=== PATIENT | female | born 1945 | race Caucasian/White ===

== ENCOUNTER → 2018-01-24 | Day surgery (SDC) | payer OTHER ==
[2018-01-21 09:53] LABS: BASOPHILS % 0.5 % (0.0-1.0); EOSINOPHILS # (AUTO) 0.1 (0.0-0.4); EOSINOPHILS % 2.6 % (0.0-6.0); HEMATOCRIT 46.5 % (34.2-44.1); HEMOGLOBIN 15.2 g/dL (12.0-16.0); LYMPHOCYTES # (AUTO) 1.6 (1.0-3.2); LYMPHOCYTES % 28.6 % (18.0-39.1); MEAN CORPUSCULAR HEMOGLOBIN 30.1 pg (28-32); MEAN CORPUSCULAR HGB CONC 32.7 g/dL (31-35); MEAN CORPUSCULAR VOLUME 92.1 fL (81-99); MONOCYTES # (AUTO) 0.5 (0.2-0.8); MONOCYTES % 8.9 % (4.4-11.3); NEUTROPHILS # (AUTO) 3.2 (2.1-6.9); PLATELET COUNT 160 x10e3/uL (140-360); RED BLOOD COUNT 5.05 x10e6/uL (3.6-5.1)
--- NOTE | 2018-01-21 10:30 | Diagnostic Imaging Report ---
EXAMINATION: PA and lateral views of the chest. COMPARISON: None CLINICAL HISTORY: Preoperative study for nasal surgery DISCUSSION: The lungs are well-inflated. No focal airspace consolidation, pleural effusion, or pneumothorax. Tortuous thoracic aorta with atherosclerotic calcification. Normal heart size. No pulmonary edema. No acute osseous abnormality. 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 IMPRESSION: No acute cardiopulmonary abnormalities. Signed by: Dr. Nate Schreiber M.D. on 01/21/2018 10:27 AM
[~2018-01-24] MED LIST: ACETAMINOPHEN 1000 MG/100 ML IV ONE; ALENDRONATE SOD40 MG; ASPIR 8181 MG PO; CALCIUM PO; CEFAZOLIN SOD 1 GM VIAL ONE; DEXAMETHASONE SOD PHOS INJ 4 MG/ML VIAL IV ONE; EPHEDRINE SULFATE INJ 50 MG/10 ML SYR IV ONE; EYE LUBRICANT OPTH OINT 3.5GM TUBE OP ONE; FENTANYL CITRATE/PF 100MCG/2 ML INJ ONE; FISH OIL 1,0001 EAC3 PO; HA JOINT PO; LIDOCAINE 1% W/EPINEPHRINE 20 ML VIAL ONE; LIDOCAINE HCL 2% LOCAL INJ 5 ML SDV VIAL INJ ONE; MIDAZOLAM HCL 2 MG/2 ML VIAL ONE; MULTI-VITAMIN1 EACH PO; MUPIROCIN 2% OINT 22 GM TUBE ONE; PROPOFOL IV EMULSION 10 MG/ML 20 ML VIAL IV ONE; ROSUVASTATIN PO; SEVOFLURANE INHAL SOLN 250 ML PEN BTL INH ONE; VITAMIN D PO
[2018-01-24 12:55] VITALS: BP 116/67
--- NOTE | 2018-01-24 15:36 | Operative Report ---
DATE OF PROCEDURE: January 24, 2018 PREOPERATIVE DIAGNOSIS: Neoplasm, nose. POSTOPERATIVE DIAGNOSES 1. Neoplasm, nose. 2. Status post Mohs micrographic removal of neoplasm, nose. PROCEDURES: Excisional preparation of wound, right nose, 5 cm squared, and then also a full-thickness skin grafting of nose with primary closure, donor site, 5 cm squared. ANESTHESIA: General. 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 The resultant defect measures 2.2 cm long x 1.7 cm tall. The risks, benefits, and alternatives of treatment were discussed with the patient and the family, and she is prepared to undergo the procedure as outlined. DESCRIPTION OF PROCEDURE: The patient was marked preoperatively in the holding area. She was brought to the operating theater. After the induction of adequate general anesthesia, she was prepped and draped in the supine position. A time-out was performed. The procedure was begun by excising the wound edges of the Mohs defect to make them more amenable to grafting. The wound bed is debrided of devitalized subcutaneous tissues, and the wound bed is then made hemostatic using the electrocautery. A template of the wound is made and transit to the preauricular area. At this point, a full-thickness graft is marked out. The soft tissues of the preauricular area are then infiltrated with 1% Xylocaine with epinephrine. A total of 7 mL was used. At this point, the full-thickness skin graft was harvested through the skin and subcutaneous tissues sharply and bleeding controlled using the electrocautery. The full-thickness graft is then elevated off the bed and removed and put in a saline-soaked sponge. At this point, the wound bed is made hemostatic using the electrocautery. The soft tissue of the cheek is undermined widely and then the wound is closed in layers utilizing 5-0 Vicryl in an interrupted buried fashion to approximate the deep dermis followed by 5-0 Prolene in an interrupted horizontal mattress fashion. At this point, the full-thickness graft is then de-fatted down to the deep dermal layer. It is then placed on the recipient site of the right nose and inset using 5-0 chromic sutures in an interrupted fashion. At the completion of the insetting, in order to recreate the superior curvature of the ala, which was removed during the Mohs micrographic surgery, full-thickness quilting stitches of 4-0 chromic are used to create the interspace between the superior alar rim and the right lateral sidewall of the nose. Three separate suture are used in an in and out fashion to create this interspace. Once the sutures had been placed and tied, 4-0 silk sutures are placed circumferentially around the full-thickness graft. Bactroban ointment, Xeroform gauze, and moistened cotton balls are then placed over the graft and then the 4-0 silk sutures are tied in a bolster-type fashion. At this point, Bactroban ointment and a sterile dressing are applied to the right preauricular area. The patient is brought to the recovery room in satisfactory condition and discharged with postoperative instruction sheet as well as a followup appointment. The estimated blood loss for the procedure was 10 to 15 mL. Job#: [id number]
== END | disposition home or self-care (01) ==
LOC: OR 07:50
PROVIDERS: ATTEND Plastic Surgery
DX: Z48.3 Aftercare following surgery for neoplasm (principal); Z85.828 Personal history of other malignant neoplasm of skin; Z01.810 Encounter for preprocedural cardiovascular examination; Z01.812 Encounter for preprocedural laboratory examination; Z01.818 Encounter for other preprocedural examination; Z79.82 Long term (current) use of aspirin
CPT/HCPCS: 15260; 36415; 71046; 85025; 93005; J0690; J1100; J2001; J2250